=== PATIENT | male | born 1980 ===

== ENCOUNTER 2016-10-02 16:34 | Emergency (ER) | payer MEDICAID ==
[2016-10-02 16:35] VITALS: BMI 25.1
[2016-10-02 16:48] VITALS: TEMP 98.3; O2SAT 97
[2016-10-02] MEDS ORDERED: Oxycodone/Acetaminophen 5/325 mg Tab PO STA (17:15)
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
[2016-10-02 17:45] VITALS: BP 122/71; PULSE 79; RESP 18
== END 2016-10-02 17:50 | disposition home or self-care (01) ==
LOC: ED 16:34
DX: G89.18 Other acute postprocedural pain (principal); M25.572 Pain in left ankle and joints of left foot
CPT/HCPCS: 96372; 99284; J1885

== ENCOUNTER 2017-07-15 04:49 | Emergency (ER) | payer MEDICAID, OTHER ==
[2017-07-15 04:50] VITALS: BMI 25.1
[2017-07-15 05:04] VITALS: TEMP 98.6
[2017-07-15] MEDS ORDERED: Sodium Chloride 0.9% 1,000 ML IV STA (05:10)
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
[2017-07-15 06:05] LABS: BASO # 0.01 K/mm3 (0.0-2.0); BASO % 0.1 % (0.0-3.0); EOS % 0.2 % (1.5-5.0); GRAN # 10.22 (1.4-6.5); GRAN % 91.6 % (50.0-68.0); HEMOGLOBIN 17.7 g/dL (14.0-18.0); LYMPH # 0.4 (1.2-3.4); LYMPH % 3.9 % (22.0-35.0); MEAN CELL VOLUME 83.6 fl (80.0-105.0); MEAN CORPUSCULAR HEMOGLOBIN 29.9 pg (25.0-35.0); MEAN CORPUSCULAR HGB CONC 35.8 g/dl (31.0-37.0); MEAN PLATELET VOLUME 10.3 fl (7.0-11.0); MONO # 0.5 (0.1-0.6); MONO % 4.2 % (1.0-6.0); PLATELET COUNT 238 10^3/uL (120.0-450.0); RBC 5.91 10^6/uL (3.5-6.1); RED CELL DISTRIBUTION WIDTH 12.9 % (11.5-14.5); WHITE BLOOD COUNT 11.2 10^3/ul (4.5-11.0)
[2017-07-15 06:16] LABS: ALB/GLOB RATIO 1.7 (1.1-1.8); ALBUMIN 5.2 g/dL (3.0-4.8); ALT/SGPT 27 U/L (7-56); AST/SGOT 29 U/L (17-59); BLOOD UREA NITROGEN 20 mg/dL (7-21); CALCIUM 10.2 mg/dL (8.4-10.5); GFR AFRICAN-AMERICAN 59; GFR NON-AFRICAN AMERICAN 49; LIPASE 63 U/L (23-300); MAGNESIUM 1.9 mg/dL (1.7-2.2)
[2017-07-15 06:19] LABS: INR 1.22 (0.93-1.08); PARTIAL THROMBOPLASTIN TIME 30.7 Seconds (25.1-36.5); PROTHROMBIN TIME 14.1 SECONDS (9.4-12.5)
[2017-07-15 06:27] LABS: TROPONIN I < 0.01 ng/mL
--- NOTE | 2017-07-15 07:15 | ED PDOC ---
Physical Exam Vital Signs Temp Pulse Resp BP Pulse Ox 07/15/17 11:15 68 16 116/65 99 07/15/17 08:15 78 16 120/66 99 07/15/17 04:50 98.6 F 95 H 20 113/69 100 Medical Decision Making ED Course and Treatment: 07/15/17 07:00 Case signed out to me by Dr. Gallardo. Patient is a 37 year old male who came in complaining of epigastric pain with associated symptoms of nausea and vomiting. Patient had tenderness in the epigastric region, 07/15/17 08:00 Gallbladder Ultrasound: Creator : KYAW SALAZAR FINDINGS: Liver: No mass. No intrahepatic bile duct dilation. Gallbladder: Unremarkable. No gallstones. Common bile duct: Common bile duct measures 4.7 mm. Pancreas: Obscured by bowel gas. Right kidney: Right kidney measures 10.1 x 4.6 x 5.3 cm. No stones. No hydronephrosis. IMPRESSION: Nonvisualization of pancreas otherwise unremarkable right upper quadrant ultrasound. 07/15/17 10:00 Chest X-ray: Creator : Deshawn Goodwin MD COMPARISON: 03/12/2016 FINDINGS: LUNGS: No active pulmonary disease. PLEURA: No significant pleural effusion identified, no pneumothorax apparent. CARDIOVASCULAR: Normal. OSSEOUS STRUCTURES: No significant abnormalities. VISUALIZED UPPER ABDOMEN: Normal. OTHER FINDINGS: None. IMPRESSION: No active disease. 07/15/17 11:[address] brian dded pending due to LLQ tenderness. Imaging show colitis and possible diverticulitis. On reevaluation the patient feels better and is in no acute distress. There is no evidence of abscess or perfolation. pt feels comfortable with dc and outpt trial antibiotics strict return precautiosn adived. 07/15/17 11:10 CT abdomen and pelvis: Creator: Robbin Ritchie MD FINDINGS: Lack intravenous contrast limits evaluation. LOWER THORAX: Unremarkable. LIVER: Unremarkable. No gross lesion or ductal dilatation. GALLBLADDER AND BILE DUCTS: Unremarkable. PANCREAS: Unremarkable. No gross lesion or ductal dilatation. SPLEEN: Unremarkable. ADRENALS: Unremarkable. No mass. KIDNEYS AND URETERS: Unremarkable. No hydronephrosis. No solid mass. VASCULATURE: Unremarkable. No aortic aneurysm. BOWEL: The stomach is mildly distend with limited residual oral contrast material and air. There is no bowel obstruction or definite mesenteric edema appreciated. Small bowel appears grossly unremarkable. Evaluation the colon reveals limited thickening of the sigmoid colon including a small segment with a narrowed lumen (images 135-139, series 3). The findings likely reflect segmental colitis without abscess or local pericolic reaction. Clinical correlation is advised well as follow-up colonoscopy following therapy given potential mid to distal sigmoid stricture. APPENDIX: Normal appendix. PERITONEUM: Unremarkable. No free fluid. No free air. LYMPH NODES: Unremarkable. No enlarged lymph nodes. BLADDER: Unremarkable. REPRODUCTIVE: Unremarkable. BONES: No acute fracture. OTHER FINDINGS: None. IMPRESSION: Findings suspicious for limited segmental colitis without abscess or local pericolic reaction. Minimal diverticular changes are appreciated with the pattern potentially reflecting diverticulitis. It is difficult to completely exclude mid to distal sigmoid stricture with mural thickening. Follow-up colonoscopy is advised following therapy exclude potential malignancy here. The examination otherwise appears unremarkable. 07/15/17 13:46 - Lab Interpretations Lab Results: 07/15/17 05:27 07/15/17 05:27 Lab Results 07/15/17 08:30: Urine Opiates Screen Negative, Urine Methadone Screen Negative, Ur Barbiturates Screen Negative, Ur Phencyclidine Scrn Negative, Ur Amphetamines Screen Negative, U Benzodiazepines Scrn Negative, U Oth Cocaine Metabols Positive H, U Cannabinoids Screen Positive H 07/15/17 08:30: Urine Color Dark yellow, Urine Appearance Clear, Urine pH 6.0, Ur Specific [place] 1.025, Urine Protein Trace H, Urine Glucose (UA) Negative, Urine Ketones >=80, Urine Blood Negative, Urine Nitrate Negative, Urine Bilirubin Small H, Urine Urobilinogen 0.2, Ur Leukocyte Esterase Negative, Urine RBC Negative, Urine WBC 0 - 2, Ur Epithelial Cells 0 - 2, Urine Bacteria Few 07/15/17 05:27: Sodium 143, Potassium 4.0, Chloride 102, Carbon Dioxide 19 L, Anion Gap 25 H, BUN 20, Creatinine 1.6 H, Est GFR ( Amer) 59, Est GFR ( Non-Af Amer) 49, Random Glucose 109, Calcium 10.2, Magnesium 1.9, Total Bilirubin 1.6 H, AST 29, ALT 27, Alkaline Phosphatase 125, Lactate Dehydrogenase 492, Total Creatine Kinase 145, Troponin I < 0.01, Total Protein 8.3, Albumin 5.2 H, Globulin 3.1, Albumin/Globulin Ratio 1.7, Lipase 63 07/15/17 05:27: PT 14.1 H, INR 1.22 H, APTT 30.7 07/15/17 05:27: WBC 11.2 H D, RBC 5.91, Hgb 17.7, Hct 49.4, MCV 83.6, MCH 29.9, MCHC 35.8, RDW 12.9, Plt Count 238, MPV 10.3, Gran % 91.6 H, Lymph % (Auto) 3.9 L, [place] % (Auto) 4.2, Eos % (Auto) 0.2 L, Baso % (Auto) 0.1, Gran # 10.22 H, Lymph # (Auto) 0.4 L, [place] # (Auto) 0.5, Eos # (Auto) 0.0, Baso # (Auto) 0.01, Neutrophils % (Manual) 90 H, Lymphocytes % (Manual) 8 L, Monocytes % (Manual) 1 , Basophils % (Manual) 1 - RAD Interpretation Radiology Orders: 07/15/17 05:10 CHEST PORTABLE [RAD] Stat 07/15/17 06:25 GALLBLADDER & COMMON DUCT [US] Stat 07/15/17 07:47 ABD & PELVIS PO CONTRAST ONLY [CT] Stat Shipping Lead: Radiologist - Medication Orders Current Medication Orders: Discontinued Medications Ciprofloxacin (Cipro) 500 mg PO ONCE STA PRN Reason: Protocol Stop: 07/15/17 11:08 Last Admin: 07/15/17 11:19 Dose: 500 mg Sodium Chloride (Sodium Chloride 0.9%) 1,000 mls @ 999 mls/hr IV .Q1H1M STA Stop: 07/15/17 06:10 Last Admin: 07/15/17 05:30 Dose: 999 mls/hr eMAR Start Stop Document 07/15/17 05:30 RG (Rec: 07/15/17 05:39 [id number]) Intravenous Solution Start Date 07/15/17 Start Time 05:30 Metronidazole (Flagyl) 500 mg PO STAT STA PRN Reason: Protocol Stop: 07/15/17 11:08 Last Admin: 07/15/17 11:20 Dose: 500 mg Ondansetron HCl (Zofran Inj) 4 mg IVP STAT STA Stop: 07/15/17 05:12 Last Admin: 07/15/17 05:29 Dose: 4 mg IVP Administration Document 07/15/17 05:29 RG (Rec: 07/15/17 05:39 RG [id number]) Charges for Administration # of IVP Administrations 1 Pantoprazole Sodium (Protonix Inj) 40 mg IVP STAT STA Stop: 07/15/17 06:26 Last Admin: 07/15/17 06:40 Dose: 40 mg IVP Administration Document 07/15/17 06:40 RG (Rec: 07/15/17 06:48 [id number]) Charges for Administration # of IVP Administrations 1 - Scribe Statement The provider has reviewed the documentation as recorded by the Scribe Reshma Bernal Provider Scribe Attestation: All medical record entries made by the Scribe were at my direction and personally dictated by me. I have reviewed the chart and agree that the record accurately reflects my personal performance of the history, physical exam, medical decision making, and the department course for this patient. I have also personally directed, reviewed, and agree with the discharge instructions and disposition. Disposition/Present on Arrival - Present on Arrival Any Indicators Present on Arrival: No History of DVT/PE: No History of Uncontrolled Diabetes: No Urinary Catheter: No History of Decub. Ulcer: No History Surgical Site Infection Following: None - Disposition Have Diagnosis and Disposition been Completed?: Yes Diagnosis: Colitis, Diverticulitis Disposition: HOME/ ROUTINE Disposition Time: 11:12 Condition: STABLE Discharge Instructions (ExitCare): Diverticulitis, Viral Gastroenteritis, Adult (DC) Additional Instructions: please follow up with your doctor. return to er with worsening symptoms or concerns. please see specialist. Prescriptions: Ciprofloxacin [Cipro] 500 mg PO BID #14 tab metroNIDAZOLE [Flagyl] 500 mg PO TID #21 tab Referrals: Mercedes Zepeda NP [Primary Care Provider] - Follow up with primary Hamlet Santillan MD [Staff Provider] - [place] up with primary [facility] [place] - Follow up with primary [facility] [Outside] - Follow up with primary Forms: [employer] (Polish)
--- NOTE | 2017-07-15 07:39 | US ---
EXAM: US Abdomen Limited, Right Upper Quadrant EXAM DATE/TIME: 07/15/2017 6:25 AM CLINICAL HISTORY: 37 years old, male; Pain; Abdominal pain; Epigastric TECHNIQUE: Real-time ultrasound of the right upper quadrant with image documentation. COMPARISON: No relevant prior studies available. FINDINGS: Liver: No mass. No intrahepatic bile duct dilation. Gallbladder: Unremarkable. No gallstones. Common bile duct: Common bile duct measures 4.7 mm. Pancreas: Obscured by bowel gas. Right kidney: Right kidney measures 10.1 x 4.6 x 5.3 cm. No stones. No hydronephrosis. IMPRESSION: Nonvisualization of pancreas otherwise unremarkable right upper quadrant ultrasound.
[2017-07-15] MEDS ORDERED: Iohexol 240 (50 ml) ONE (07:51)
[2017-07-15 08:15] LABS: BASOPHIL 1 % (0.0-1.0); LYMPHOCYTE 8 % (22.0-35.0); MONOCYTE 1 % (1.0-6.0); NEUTROPHIL 90 % (50.0-70.0)
[2017-07-15 09:02] LABS: URINE BILIRUBIN SMALL (NEGATIVE); URINE BLOOD NEGATIVE (NEGATIVE); URINE GLUCOSE (UA) NEGATIVE (NEGATIVE); URINE LEUKOCYTE ESTERASE NEGATIVE Leu/uL (NEGATIVE); URINE NITRATE NEGATIVE (NEGATIVE); URINE PROTEIN TRACE mg/dL (<30 mg/dL); URINE UROBILINOGEN 0.2 E.U./dL (<1 E.U./dL)
[2017-07-15 09:03] LABS: URINE APPEARANCE CLEAR (CLEAR); URINE COLOR DARK YELLOW (YELLOW)
[2017-07-15 09:16] LABS: BARBITURATES, UR NEGATIVE (NEGATIVE)
[2017-07-15 09:21] LABS: BENZODIAZEPINES, UR NEGATIVE (NEGATIVE); OPIATES, UR NEGATIVE (NEGATIVE); PHENCYCLIDINE, UR NEGATIVE (NEGATIVE)
--- NOTE | 2017-07-15 09:52 | RAD ---
HISTORY: chest pain COMPARISON: 03/12/2016 FINDINGS: LUNGS: No active pulmonary disease. PLEURA: No significant pleural effusion identified, no pneumothorax apparent. CARDIOVASCULAR: Normal. OSSEOUS STRUCTURES: No significant abnormalities. VISUALIZED UPPER ABDOMEN: Normal. OTHER FINDINGS: None. IMPRESSION: No active disease.
[2017-07-15 10:02] LABS: URINE BACTERIA FEW (NEG); URINE EPITHELIAL CELLS 0 - 2 /hpf (0-5); URINE RBC NEGATIVE /hpf (0-2); URINE WBC 0 - 2 /hpf (0-6)
--- NOTE | 2017-07-15 11:08 | CT ---
PROCEDURE: CT Abdomen and Pelvis with contrast HISTORY: llq and epigastric pain COMPARISON: None. TECHNIQUE: Helical CT of the abdomen and pelvis was performed following oral contrast administration. Intravenous contrast was not administered as per referring physician request. Contrast dose: None Radiation dose: Total exam DLP = 432.52 mGy-cm. This CT exam was performed using one or more of the following dose reduction techniques: Automated exposure control, adjustment of the mA and/or kV according to patient size, and/or use of iterative reconstruction technique. FINDINGS: Lack intravenous contrast limits evaluation. LOWER THORAX: Unremarkable. LIVER: Unremarkable. No gross lesion or ductal dilatation. GALLBLADDER AND BILE DUCTS: Unremarkable. PANCREAS: Unremarkable. No gross lesion or ductal dilatation. SPLEEN: Unremarkable. ADRENALS: Unremarkable. No mass. KIDNEYS AND URETERS: Unremarkable. No hydronephrosis. No solid mass. VASCULATURE: Unremarkable. No aortic aneurysm. BOWEL: The stomach is mildly distend with limited residual oral contrast material and air. There is no bowel obstruction or definite mesenteric edema appreciated. Small bowel appears grossly unremarkable. Evaluation the colon reveals limited thickening of the sigmoid colon including a small segment with a narrowed lumen (images [id number], series 3). The findings likely reflect segmental colitis without abscess or local pericolic reaction. Clinical correlation is advised well as follow-up colonoscopy following therapy given potential mid to distal sigmoid stricture. APPENDIX: Normal appendix. PERITONEUM: Unremarkable. No free fluid. No free air. LYMPH NODES: Unremarkable. No enlarged lymph nodes. BLADDER: Unremarkable. REPRODUCTIVE: Unremarkable. BONES: No acute fracture. OTHER FINDINGS: None. IMPRESSION: Findings suspicious for limited segmental colitis without abscess or local pericolic reaction. Minimal diverticular changes are appreciated with the pattern potentially reflecting diverticulitis. It is difficult to completely exclude mid to distal sigmoid stricture with mural thickening. Follow-up colonoscopy is advised following therapy exclude potential malignancy here. The examination otherwise appears unremarkable.
[2017-07-15 11:16] VITALS: BP 116/65; PULSE 68; RESP 16; O2SAT 99
--- NOTE | 2017-07-16 02:43 | CARD ---
APPROVED REPORT EKG Measurement Heart [id number] <Conclusion> Normal sinus rhythm Possible Left atrial enlargement Borderline ECG
== END 2017-07-15 11:38 | disposition home or self-care (01) ==
LOC: ED 04:49
DX: K52.9 Noninfective gastroenteritis and colitis, unspecified (principal); K57.92 Diverticulitis of intestine, part unspecified, without perforation or abscess without bleeding; F17.210 Nicotine dependence, cigarettes, uncomplicated
CPT/HCPCS: 71045; 74176; 76705; 80053; 80324; 80345; 80346; 80349; 80353; 80358; 80361; 81001; 82550; 83615; 83690; 83735; 83992; 84484; 85025; 85610; 85730; 93005; 96374; 96375; 99285; C9113; J2405; J7040; Q9966